=== PATIENT | female | born 1995 | race Hispanic/Latino ===

== ENCOUNTER 2022-11-28 22:35 | Day surgery (SDC) | payer OTHER ==
[2022-11-28 23:08] VITALS: BMI 46.5
[2022-11-28] MEDS ORDERED: hydrALAZINE 20 MG/ML VIAL SLOW IVP PRN (23:16)
== END 2022-11-29 00:42 | disposition home or self-care (01) ==
LOC: CSHLD/OP 22:35
PROVIDERS: ATTEND Obstetrics & Gynecology
DX: O99.283 Endocrine, nutritional and metabolic diseases complicating pregnancy, third trimester (principal); E86.0 Dehydration; O99.62 Diseases of the digestive system complicating childbirth; A08.4 Viral intestinal infection, unspecified; O47.03 False labor before 37 completed weeks of gestation, third trimester; O13.3 Gestational [pregnancy-induced] hypertension without significant proteinuria, third trimester; Z3A.31 31 weeks gestation of pregnancy
CPT/HCPCS: 99281